=== PATIENT | male | born 1980 | race Caucasian/White ===

== ENCOUNTER 2019-01-13 09:53 | Emergency (ER) | payer BC, SELFPAY ==
[2019-01-13] VITALS (22 sets, daily range): BP systolic 117–122; BP diastolic 64–84; PULSE 84–95; RESP 11–24; TEMP 36.5; O2SAT 98–100
--- NOTE | 2019-01-13 10:01 | DI.CT_ITS ---
SYMPTOM/DIAGNOSIS: NEAR SYNCOPE NONCONTRAST HEAD CT: There are no prior comparison exams. There is no evidence of intracranial hemorrhage or skull fracture. There is no evidence of mass or infarct. The ventricles are normal in size. There are a few small mucous retention cysts in the right maxillary sinus. The mastoid air cells appear clear. IMPRESSION: No acute abnormality.
--- NOTE | 2019-01-13 10:03 | W.ED.GENAD ---
Discharge Plan Disposition Patient Disposition: HOME Condition: Improving Discharge Details Chief Complaint: Dizzy/Sync Clinical Impression: Hypomagnesemia Primary Care Provider: Malick Altman ED Provider: Bk Hughes Home Meds and New Rx's Prescriptions: No Action No Known Home Meds RF: 0 Discharge Instructions Instructions: Hypomagnesemia (ED) Additional Instructions: Please ensure a diet rich in leafy greens, fresh fruits and vegetables. As we discussed, I recommend you begin daily use of Metamucil as a fiber supplement. Please follow-up with your regular doctor in the next 7 to 10 days for recheck. Home to rest today. 01/13/19 01/13/19 10:07 10:07 WBC 8.79 RBC 5.80 Hgb 17.1 Hct 48.1 MCV 82.9 MCH 29.5 MCHC 35.6 RDW 12.4 Plt Count 196 MPV 11.8 H Immature Gran % 0.2 Neutrophils % 87.2 Lymphocytes % 6.7 Monocytes % 5.5 Eosinophils % 0.3 Basophils % 0.1 Absolute Neutrophils 7.66 H Absolute Lymphocytes 0.59 L Absolute Monocytes 0.48 Absolute Eosinophils 0.03 Absolute Basophils 0.01 Sodium 140 Potassium 4.4 Chloride 105 Carbon Dioxide 21.4 Anion Gap 13.6 H BUN 15 Creatinine 0.97 Estimated GFR/1.73 m2 >= 60.00 Glucose 100 Calcium 9.3 Magnesium 1.7 L Total Bilirubin 1.8 H AST 17 ALT 34 Alkaline Phosphatase 69 Troponin I < 0.05 Total Protein 7.8 Albumin 4.3 Medical Decision Making 38-year-old male who was driving with his son from his home in [place] to see his parents in [place]. While driving he began to feel tingling in his extremities, slight weakness and lightheadedness with associated nausea. He pulled over to a local store, EMS was called, and patient was evaluated. He does not have syncope, chest pain, palpitations, nor headache. He states he had similar episodes in the past when he has had abnormal electrolytes (magnesium/potassium). He also states he struggles with loose stool on a frequent basis. He arrives with reassuring vital signs, pulse is 91 with blood pressure 121/81. He has no neurologic deficits. Differential diagnosis includes dehydration, electrolyte abnormality, cardiogenic or central cause of the syncope/near syncope, would consider hypokalemic periodic paralysis as well. Patient was placed on a color television console monitor, IV access established, referred for chest x-ray, EKG, CT scan of the head and laboratory testing. Imaging studies unremarkable. Labs reveal mild hypomagnesemia, slightly elevated total bilirubin of 1.8 but unremarkable AST, ALT, alk phos. Troponin is negative. Patient given magnesium supplementation, observed, and improved. He will begin Metamucil as a fiber supplement, increased leafy green vegetables and fresh fruits in his diet. Stable and appropriate for discharge but will have him follow-up with primary care for recheck. Lab Data Lab results reviewed: Yes I reviewed the patient's lab results. Laboratory Results - last 24 hr 01/13/19 01/13/19 10:07 10:07 WBC 8.79 RBC 5.80 Hgb 17.1 Hct 48.1 MCV 82.9 MCH 29.5 MCHC 35.6 RDW 12.4 Plt Count 196 MPV 11.8 H Immature Gran % 0.2 Neutrophils % 87.2 Lymphocytes % 6.7 Monocytes % 5.5 Eosinophils % 0.3 Basophils % 0.1 Absolute Neutrophils 7.66 H Absolute Lymphocytes 0.59 L Absolute Monocytes 0.48 Absolute Eosinophils 0.03 Absolute Basophils 0.01 Sodium 140 Potassium 4.4 Chloride 105 Carbon Dioxide 21.4 Anion Gap 13.6 H BUN 15 Creatinine 0.97 Estimated GFR/1.73 m2 >= 60.00 Glucose 100 Calcium 9.3 Magnesium 1.7 L Total Bilirubin 1.8 H AST 17 ALT 34 Alkaline Phosphatase 69 Troponin I < 0.05 Total Protein 7.8 Albumin 4.3 ECG Data Attestation: I personally reviewed and interpreted this ECG (s) as follows: Interpretation: Normal sinus rhythm with a rate of 91, the QRS is narrow, there is no ST segment elevation HPI General Mode of arrival: EMS. Date/Time Provider Initiated Documentation: 01/13/19 10:35. Limitations to Documentation: no limitations. Information obtained by: patient, police and EMS. History of Present Illness 38 year old M presents to the emergency department with the chief complaint of Near syncope. Similar to previous, and improved, described as similar to prior episodes, Quality is described as dull and constant, Patient reports no radiation. Patient started experiencing this minute(s) and it has been other (Improving). No relieving factors improve symptom(s), No exacerbating factors reported . Patient notes malaise, weakness and other (Nauseated, no emesis). Patient did receive the following treatments prior to arrival, none Related Data Home Medications Medication Instructions Recorded Confirmed Unknown [No Known Home Meds] 01/13/19 01/13/19 Allergies Allergy/AdvReac Type Severity Reaction Status Date / Time cephalexin [From Keflex] Allergy Hives Unverified 01/13/19 09:54 General Stated Complaint: Dizzy/Sync YESSICA: 2 Review of Systems Review of Systems Recently has been well. 2 loose stool yesterday. Similar episodes of near syncope in the past. Denies chest pain, palpitations, shortness of breath, headache. Sick systems reviewed and otherwise negative [facility] Social History Smoking/Tobacco Use Status: Never Alcohol Intake: current Alcohol Intake frequency: a few times a month Drug use: Never Do you feel safe at home: Yes Do you feel safe in your relationship?: Yes Exam Narrative Exam Narrative: GEN: awake, alert, oriented 3. Pleasant, well groomed, interactive, anxious. HEAD: Normocephalic, atraumatic ENT: Mucous membranes moist, oropharynx unremarkable, External ear exam unremarkable EYES: PERRL, EOMI NECK: Full ROM, no HUSAM, no menigismus CHEST/RESP: Nontender, clear to auscultation bilateral, no wheeze/rhonchi/rales CARDIOVASCULAR: RRR, no murmur, rub saurav. 2+ Rad pulse bilateral ABDOMEN: Soft, nontender, no mass. +Bowel sounds EXT: Full ROM, no edema, no rash Neuro: Grossly normal neurologic exam, conversant, interactive. Psych: Speech fluent, thoughts congruent, affect anxious this Course Vital Signs Temperature 36.5 C 01/13/19 09:55 Pulse 91 H 01/13/19 09:55 Respiratory Rate 16 01/13/19 09:55 Blood Pressure 121/81 01/13/19 09:55 Pulse Oximetry 100 01/13/19 09:55 Temperature 36.5 C 01/13/19 09:55 Temperature Source Temporal Artery Scan 01/13/19 09:55 Pulse 91 H 01/13/19 09:55 Respiratory Rate 16 01/13/19 09:55 Respiratory Effort Non-Labored 01/13/19 10:00 Blood Pressure 121/81 01/13/19 09:55 Blood Pressure Position Supine 01/13/19 09:55 Pulse Oximetry 100 01/13/19 09:55 Oxygen Delivery Method Room Air 01/13/19 09:55 Oxygen Flow Rate 0 01/13/19 09:55 Pain Level 0 01/13/19 09:55
--- NOTE | 2019-01-13 10:06 | ED.GENADUL_ITS ---
Discharge Plan Disposition Patient Disposition: HOME Condition: Improving Discharge Details Chief Complaint: Dizzy/Sync Clinical Impression: Hypomagnesemia Primary Care Provider: Malick Altman ED Provider: Bk Hughes Home Meds and New Rx's Prescriptions: No Action No Known Home Meds RF: 0 Discharge Instructions Instructions: Hypomagnesemia (ED) Additional Instructions: Please ensure a diet rich in leafy greens, fresh fruits and vegetables. As we discussed, I recommend you begin daily use of Metamucil as a fiber supplement. Please follow-up with your regular doctor in the next 7 to 10 days for recheck. Home to rest today. 01/13/19 01/13/19 10:07 10:07 WBC 8.79 RBC 5.80 Hgb 17.1 Hct 48.1 MCV 82.9 MCH 29.5 MCHC 35.6 RDW 12.4 Plt Count 196 MPV 11.8 H Immature Gran % 0.2 Neutrophils % 87.2 Lymphocytes % 6.7 Monocytes % 5.5 Eosinophils % 0.3 Basophils % 0.1 Absolute Neutrophils 7.66 H Absolute Lymphocytes 0.59 L Absolute Monocytes 0.48 Absolute Eosinophils 0.03 Absolute Basophils 0.01 Sodium 140 Potassium 4.4 Chloride 105 Carbon Dioxide 21.4 Anion Gap 13.6 H BUN 15 Creatinine 0.97 Estimated GFR/1.73 m2 >= 60.00 Glucose 100 Calcium 9.3 Magnesium 1.7 L Total Bilirubin 1.8 H AST 17 ALT 34 Alkaline Phosphatase 69 Troponin I < 0.05 Total Protein 7.8 Albumin 4.3 Medical Decision Making 38-year-old male who was driving with his son from his home in [place] to see his parents in [place]. While driving he began to feel tingling in his extremities, slight weakness and lightheadedness with associated nausea. He pulled over to a local store, EMS was called, and patient was evaluated. He does not have syncope, chest pain, palpitations, nor headache. He states he had similar episodes in the past when he has had abnormal electrolytes (magnesium/potassium). He also states he struggles with loose stool on a f requent basis. He arrives with reassuring vital signs, pulse is 91 with blood pressure 121/81. He has no neurologic deficits. Differential diagnosis includes dehydration, electrolyte abnormality, c ardiogenic or central cause of the syncope/near syncope, would consider hypokalemic periodic paralysis as well. Patient was placed on a cardiac cath technologist, IV access established, referred for chest x-ray, EKG, CT scan of the head and laboratory testing. Imaging studies unremarkable. Labs reveal mild hypomagnesemia, slightly elevated total bilirubin of 1.8 but unremarkable AST, ALT, alk phos. Troponin is negative. Patient given magnesium supplementation, observed, and improved. He will begin Metamucil as a fiber supplement, increased leafy green vegetables and fresh fruits in his diet. Stable and appropriate for discharge but will have him follow-up with primary care for recheck. Lab Data Lab results reviewed: Yes I reviewed the patient's lab results. Laboratory Results - last 24 hr 01/13/19 01/13/19 10:07 10:07 WBC 8.79 RBC 5.80 Hgb 17.1 Hct 48.1 MCV 82.9 MCH 29.5 MCHC 35.6 RDW 12.4 Plt Count 196 MPV 11.8 H Immature Gran % 0.2 Neutrophils % 87.2 Lymphocytes % 6.7 Monocytes % 5.5 Eosinophils % 0.3 Basophils % 0.1 Absolute Neutrophils 7.66 H Absolute Lymphocytes 0.59 L Absolute Monocytes 0.48 Absolute Eosinophils 0.03 Absolute Basophils 0.01 Sodium 140 Potassium 4.4 Chloride 105 Carbon Dioxide 21.4 Anion Gap 13.6 H BUN 15 Creatinine 0.97 Estimated GFR/1.73 m2 >= 60.00 Glucose 100 Calcium 9.3 Magnesium 1.7 L Total Bilirubin 1.8 H AST 17 ALT 34 Alkaline Phosphatase 69 Troponin I < 0.05 Total Protein 7.8 Albumin 4.3 ECG Data Attestation: I personally reviewed and interpreted this ECG (s) as follows: Interpretation: Normal sinus rhythm with a rate of 91, the QRS is narrow, there is no ST segment elevation HPI General Mode of arrival: EMS . Date/Time Provider Initiated Documentation: 01/13/19 10:35 . Limitations to Documentation: no limitations . Information obtained by: patient, police and EMS . History of Present Illness 38 year old M presents to the emergency department with the chief complaint of Near syncope. Similar to previous, and improved, described as similar to prior episodes, Quality is described as dull and constant, Patient reports no radiation. Patient started experiencing this minute(s) and it has been other (Improving). No relieving factors improve symptom(s), No exacerbating factors reported . Patient notes malaise, weakness and other (Nauseated, no emesis). Patient did receive the following treatments prior to arrival, none Related Data Home Medications Medication Instructions Recorded Confirmed Unknown [No Known Home Meds] 01/13/19 01/13/19 Allergies Allergy/AdvReac Type Severity Reaction Status Date / Time cephalexin [From Keflex] Allergy Hives Unverified 01/13/19 09:54 General Stated Complaint: Dizzy/Sync YESSICA: 2 Review of Systems Review of Systems Recently has been well. 2 loose stool yesterday. Similar episodes of near syncope in the past. Denies chest pain, palpitations, shortness of breath, headache. Sick systems reviewed and otherwise negative [facility] Social History Smoking/Tobacco Use Status: Never Alcohol Intake: current Alcohol Intake frequency: a few times a month Drug use: Never Do you feel safe at home: Yes Do you feel safe in your relationship?: Yes Exam Narrative Exam Narrative: GEN: awake, alert, oriented 3. Pleasant, well groomed, interactive, anxious. HEAD: Normocephalic, atraumatic ENT: Mucous membranes moist, oropharynx unremarkable, External ear exam unremarkable EYES: PERRL, EOMI NECK: Full ROM, no HUSAM, no menigismus CHEST/RESP: Nontender, clear to auscultation bilateral, no wheeze/rhonchi/rales CARDIOVASCULAR: RRR, no murmur, rub suarav. 2+ Rad pulse bilateral ABDOMEN: Soft, nontender, no mass. +Bowel sounds EXT: Full ROM, no edema, no rash Neuro: Grossly normal neurologic exam, conversant, interactive. Psych: Speech fluent, thoughts congruent, affect anxious this Course Vital Signs Temperature 36.5 C 01/13/19 09:55 Pulse 91 H 01/13/19 09:55 Respiratory Rate 16 01/13/19 09:55 Blood Pressure 121/81 01/13/19 09:55 Pulse Oximetry 100 01/13/19 09:55 Temperature 36.5 C 01/13/19 09:55 Temperature Source Temporal Artery Scan 01/13/19 09:55 Pulse 91 H 01/13/19 09:55 Respiratory Rate 16 01/13/19 09:55 Respiratory Effort Non-Labored 01/13/19 10:00 Blood Pressure 121/81 01/13/19 09:55 Blood Pressure Position Supine 01/13/19 09:55 Pulse Oximetry 100 01/13/19 09:55 Oxygen Delivery Method Room Air 01/13/19 09:55 Oxygen Flow Rate 0 01/13/19 09:55 Pain Level 0 01/13/19 09:55
[2019-01-13 10:18] LABS: Abs Immature Grans 0.02 k/cumm (0.0-0.09); Absolute Basophil Count 0.01 k/cumm (0.0-0.2); Absolute Eosinophil Count 0.03 k/cumm (0.0-0.7); Absolute Lymphocyte Count 0.59 k/cumm (1.2-3.4); Absolute Monocyte Count 0.48 k/cumm (0.11-0.7); Absolute Neutrophil Count 7.66 k/cumm (1.2-6.7); Basophils % 0.1; Eosinophils % 0.3; HCT 48.1 % (40.0-50.0); HGB 17.1 g/dL (13.5-17.5); Immature Grans % 0.2; Lymphocytes % 6.7; Mean Corp. HGB Concentration 35.6 g/dL (32.0-36.0); Mean Corpuscular Hemoglobin 29.5 pg (27.0-33.0); Mean Corpuscular Volume 82.9 fL (80-95); Mean Platelet Volume 11.8 fL (8.0-11.0); Monocytes % 5.5; Neutrophils % 87.2; Platelet Count 196 x1000/uL (130-400); RBC Distribution Width 12.4 % (11.8-14.1); White Blood Cell Count 8.79 k/cumm (4.4-10.8)
--- NOTE | 2019-01-13 10:33 | DI.RAD_ITS ---
SYMPTOM/DIAGNOSIS: NEAR SYNCOPE PA AND LATERAL CHEST: There are no prior comparison exams. The cardiac and mediastinal contours have a normal appearance. The lungs are well inflated and clear. No infiltrate or effusion is seen. There is no evidence of rib fracture or pneumothorax. IMPRESSION: Negative chest x-ray.
[2019-01-13 10:36] LABS: ALT 34 U/L (12-78); AST 17 U/L (15-37); Albumin 4.3 g/dL (3.4-5.0); Alkaline Phosphatase 69 U/L (46-116); Anion Gap 13.6 mmol/L (3-11); BUN 15 mg/dL (7-18); Bilirubin, Total 1.8 mg/dL (0.2-1.0); CO2 21.4 mmol/L (21.0-32.0); CREATININE 0.97 mg/dL (0.70-1.30); Calcium 9.3 mg/dL (8.5-10.1); Chloride 105 mmol/L (98-107); Glucose 100 mg/dL (70-100); Magnesium 1.7 mg/dL (1.8-2.4); Potassium 4.4 mmol/L (3.5-5.1); Sodium 140 mmol/L (136-145); Total Protein 7.8 g/dL (6.4-8.2)
[2019-01-13] MEDS: Normal Saline 1,000 ML 1000 ML IV (10:41)
[2019-01-13 10:47] LABS: Troponin I < 0.05 ng/mL (0.00-0.06)
--- NOTE | 2019-01-13 10:54 | DI.VRAD_ITS ---
EXAM: XR Chest, 2 Views EXAM DATE/TIME: 01/13/2019 10:03 AM CLINICAL HISTORY: 38 years old, male; Other: Near syncope TECHNIQUE: Imaging protocol: XR of the chest, 2 views. COMPARISON: No relevant prior studies available. FINDINGS: Lungs: Unremarkable. No consolidation. Pleural space: Unremarkable. No pleural effusion. No pneumothorax. Heart/Mediastinum: Unremarkable. No cardiomegaly. Bones/joints: Unremarkable. IMPRESSION: No acute findings. Dictated and Authenticated by: Doug Flores MD. Ordering:MARTITA Bourgeois MD
--- NOTE | 2019-01-13 10:55 | DI.VRAD_ITS ---
EXAM: CT Head Without Contrast EXAM DATE/TIME: 01/13/2019 10:23 AM CLINICAL HISTORY: 38 years old, male; Other: Near syncope TECHNIQUE: Imaging protocol: Axial computed tomography images of the head without contrast. Coronal and sagittal reformatted images were created and reviewed. Radiation optimization: All CT scans at this facility use at least one of these dose optimization techniques: automated exposure control; mA and/or kV adjustment per patient size (includes targeted exams where dose is matched to clinical indication); or iterative reconstruction. COMPARISON: No relevant prior studies available. FINDINGS: Brain: Normal. No hemorrhage. Unremarkable white matter. No mass effect. Ventricles: Normal. No ventriculomegaly. Bones/joints: Unremarkable. No acute fracture. Sinuses: Polyps or retention cysts in the right maxillary sinus Mastoid air cells: Visualized mastoid air cells are well aerated. No mastoid effusion. Soft tissues: Unremarkable. IMPRESSION: No acute intracranial hemorrhage Dictated and Authenticated by: Doug Flores MD. Ordering:MARTITA Bourgeois MD
[2019-01-13] MEDS: MAGNESIUM SULFATE 1 GM/100 ML BAG IVPB (10:59)
== END 2019-01-13 12:20 | disposition home or self-care (01) ==
LOC: ER 11:05
PROVIDERS: Emergency Provider Emergency Medicine; PCP Family Medicine
DX: E83.42 Hypomagnesemia (principal)
CPT/HCPCS: 36415; 80053; 93005; 96361; 96365; 99285; 70450; 71046; 83735; 84484; 85025; 93010; 99284; J3475